=== PATIENT | male | born 1965 | race Caucasian/White ===

== ENCOUNTER → 2023-10-01 | Outpatient (CLI) | payer OTHER | END | disposition home or self-care (01) | LOC: RAD 10:03 | PROVIDERS: ATTEND Nurse Practitioner | DX: Z00.00 Encounter for general adult medical examination without abnormal findings (principal) | CPT/HCPCS: 70220; 71046 ==

== ENCOUNTER → 2024-02-22 | Outpatient (CLI) | payer OTHER | END | disposition home or self-care (01) | LOC: RAD 10:49 | PROVIDERS: ATTEND Registered Nurse | DX: M47.814 Spondylosis without myelopathy or radiculopathy, thoracic region (principal); Z00.00 Encounter for general adult medical examination without abnormal findings | CPT/HCPCS: 71046 ==